=== PATIENT | male | born 1980 | race Caucasian/White ===

== ENCOUNTER 2016-12-27 16:34 | Emergency (ER) | payer OTHER ==
[~2016-12-27] VITALS: Ht 182.9 cm; Wt 86.2 kg
--- NOTE | ~2016-12-27 | EKG ---
[address] [address] ELECTROCARDIOGRAM REPORT Name: MIA IZAGUIRRE Lauren [id number] Admission: 12/27/16 Attend Phys: Discharge: 12/27/16 Date of : 80 Report #: [id number] THIS REPORT FOR: //name// [facility] ED Test Date: 2016-12-27 Test Time: 17:06:44 Pat Name: MIA IZAGUIRRE Department: Room: Gender: M [employer]: [id number] : 1980 Requested By: Mau Barrios Order Number: [id number] MD: You Sun Measurements Intervals [place] Rate: 91 P: 52 AL: 142 QRS: 54 QRSD: 94 T: 36 QT: 339 QTc: 418 Interpretive Statements Sinus rhythm No previous ECG available for comparison Electronically Signed On 12-27-2016 22:10:16 CDT by You Sun [email or web address] <ELECTRONICALLY SIGNED> By: You Sun MD 12/27/16 2210 1706 1706 You Sun MD /DOMENIC
[~2016-12-27 16:34] MED LIST: HYDROCODONE-AP1 EAC6 PO; IBUPROFEN 800800 M1 PO; MOBIC7.5 MG PO; ROBAXIN 750 MG750 M1 PO; TRAMADOL 50 MG50 MG PO
[2016-12-27] MEDS ORDERED: EXCEDRIN CAPLE1 EACH PO (17:16)
[2016-12-27] MEDS ORDERED: ASPIRIN325 PO (17:16)
[2016-12-27 17:18] VITALS: BP 136/95
[2016-12-27 17:19] LABS: ABSOLUTE NEUTROPHILS 6.5 thou/uL (1.4-8.2); BASOPHILS 0.8 % (0.0-2.0); EOSINOPHILS 4.3 % (0.0-3.0); HEMATOCRIT 39.9 % (42.0-52.0); HEMOGLOBIN 13.5 gm/dL (14.0-18.0); LYMPHOCYTES 23.9 % (24.0-44.0); MCH 31.6 pg (26.0-34.0); MCHC 33.9 g/dL (28.0-37.0); MCV 93.3 fL (80.0-100.0); MONOCYTES 7.7 % (1.0-8.0); PLATELET COUNT 233 thou/uL (150-400); POLYS 63.3 % (36.0-66.0); RBC 4.28 mil/uL (4.50-6.00); RDW 13.2 % (10.5-14.5); WBC 10.3 thou/uL (4.0-11.0)
[2016-12-27 17:20] LABS: MANUAL DIFF NO
[2016-12-27 17:29] LABS: CALCIUM 8.5 mg/dL (8.5-10.1); CREATININE 1.1 mg/dL (0.7-1.3); POTASSIUM 3.4 mmol/L (3.5-5.1)
[2016-12-27] MEDS ORDERED: ANTIVERT25 MG PO (17:53)
== END 2016-12-27 18:06 | disposition home or self-care (01) ==
LOC: ER 16:34
PROVIDERS: Physician Assistant
DX: R42 Dizziness and giddiness (principal); F17.210 Nicotine dependence, cigarettes, uncomplicated; Z98.890 Other specified postprocedural states